=== PATIENT | female | born 1930 | race Caucasian/White ===

== ENCOUNTER 2017-02-18 21:14 | Inpatient (IN) | payer MEDICARE, BC ==
--- NOTE | ~2017-02-18 | CR72 ---
[facility] A Service of [facility] & [facility] RADIOLOGY TEXT RESULTS PATIENT: DANIEL LY LOCATION: [facility] 317-01 : 30 UNIT #: [id number] AGE: [address]: Valerie Haynes MD SEX: F ORDER DR: [id number] [facility] [address] [place], [place] [address] [id number] I MR#: [id number] Acc #: [id number] NAME: DANIEL LY. : 1930 SEX: F STUDY DATE/TIME: 02/18/2017 21:56 UNIT: CEDOF ROOM: 67582 STUDY DESCRIPTION: CR Chest Single View Portable Attending Physician: Valerie Haynes M.D. Ordering Physician: Nidia Giron M.D. Primary Care Physician: Landon Campa M.D. MEDICAL IMAGING REPORT This report is preliminary unless electronic signature is present EXAM AP portable chest radiograph. HISTORY Shortness of breath. Chest pain. History of pneumonia for 1 week. FINDINGS AP portable view is obtained. Heart size is normal. Patient has baseline severe emphysematous lung disease. The patient has developed superimposed infiltrates throughout both lungs. Postsurgical changes are seen in the left axilla. CONCLUSION Severe baseline emphysematous lung disease. Interim development of bilateral infiltrates in both lungs. Given the extent of the patient's chronic lung disease. This could represent superimposed heart failure, an infectious pneumonia, or given the time frame between the 2 films development of severe interstitial fibrosis. Dictated by... Brennen Arroyo M.D. THIS IS AN ELECTRONICALLY VERIFIED REPORT Brennen Arroyo M.D. at 02/19/2017 6:08 PM LEONILA/katie TD: 02/19/2017 07:57 JOB #: [id number] MEDICAL IMAGING REPORT Page 1 of 1 COPY
--- NOTE | ~2017-02-18 | CR63 ---
[facility] A Service of [facility] & [facility] RADIOLOGY TEXT RESULTS PATIENT: DANIEL LY LOCATION: [facility] 317- : 30 UNIT #: [id number] AGE: [address]: Valerie Haynes MD SEX: F ORDER DR: [id number] [facility] [address] [place], [place] [address] [id number] I MR#: [id number] Acc #: [id number] NAME: DANIEL LY : 1930 SEX: F STUDY DATE/TIME: 02/21/2017 13:16 UNIT: [address] ROOM: [facility] STUDY DESCRIPTION: CR Chest 2 View Attending Physician: Valerie Haynes M.D. Ordering Physician: Valerie Haynes M.D. Primary Care Physician: Landon Campa M.D. MEDICAL IMAGING REPORT This report is preliminary unless electronic signature is present EXAM PA and lateral radiographs of the chest, 02/22/2016 HISTORY Flue, cough, congestion. History of pneumonia and weakness. 10 days duration. FINDINGS PA and lateral radiographs of the chest are presented. Comparison 02/18/2017. No acute bony abnormality. Heart normal in size. Hyperinflation of the lungs suggesting underlying emphysema. This is stable. Ill-defined patchy densities seen in the bilateral lungs on prior examination are improved but not yet completely resolved. This likely reflects improving bilateral pneumonia. Improving pulmonary edema superimposed on emphysematous lung could be considered. No new areas of airspace disease are seen and there are no new areas of dense airspace disease. No suspicious nodules. Patient appears to be status post left mastectomy and axillary node dissection. There is a moderate hiatal hernia. Dictated by... Brennen Vasquez M.D. THIS IS AN ELECTRONICALLY VERIFIED REPORT Brennen Vasquez M.D. at 02/22/2017 11:31 AM Sam TD: 02/21/2017 22:52 JOB #: [id number] MEDICAL IMAGING REPORT [facility] A Service of [facility] & [facility] RADIOLOGY TEXT RESULTS PATIENT: DANIEL LY LOCATION: [facility] 317-01 : 30 UNIT #: [id number] AGE: [address]: Valerie Haynes MD SEX: F ORDER DR: Page 1 of 1 COPY
--- NOTE | ~2017-02-18 | EKG ---
PATIENT: DANIEL LY UNIT #: [id number] Ventricular Rate: 117 BPM Atrial Rate: 117 BPM P-R Interval: 134 ms QRS Duration: 80 ms Q-T Interval: 308 ms QTC Calculation(Bezet): 429 ms P Berthold: 68 degrees Calculated R Berthold: 70 degrees Calculated T Berthold: 56 degrees Diagnosis Line: Sinus tachycardia Diagnosis Line: Otherwise normal ECG Diagnosis Line: When compared with ECG of 12-MAY-2015 15:59, Diagnosis Line: Nonspecific T wave abnormality now evident in Diagnosis Line: Inferior leads Diagnosis Line: Confirmed by PILAR MARLEY MD ([id number]) on Diagnosis Line: 02/20/2017 1:19:22 PM INTERPRETING MD: TARA
--- NOTE | ~2017-02-18 | HP ---
Unit #: [id number] #: [id number] Patient: DANIEL LY [id number] [address] [place], [place] [address] [id number] I MR#: [id number] NAME: DANIEL LY. ROOM: 86449 Age: 86 Sex: F Admission Date: 02/19/2017 : 1930 Attending Physician: Valerie Haynes M.D. Primary Care Physician: Landon Campa M.D. HISTORY AND PHYSICAL CHIEF COMPLAINT Cough, chest pain with deep breath, shortness of breath, sore throat. DISCUSSION This is an 86-year-old female with a past medical history of breast cancer with previous left mastectomy, history of appendectomy, dyslipidemia, acid reflux. She represented to the emergency room with one week symptoms of sore throat, cough, congestion, chest pain, with deep breathe and on workup she was found to have bilateral infiltrate on chest x-ray and eventually admitted. She is telling me that her symptoms are similar, like previous she had a pneumonia. She says she has a creamy sputum but denies any other complaint. No diarrhea. No abdominal pain. No nausea. No vomiting. No headache. No dizziness. PAST MEDICAL HISTORY 1. History of laparoscopic appendectomy and subsequent exploratory laparotomy for possible small bowel obstruction in 2009. 2. History of breast cancer with previous left mastectomy. 3. Hyperlipidemia. 4. GERD. PAST SURGICAL HISTORY 1. Left mastectomy. 2. Appendectomy. 3. Exploratory laparotomy. 4. Left ankle surgery. SOCIAL HISTORY The patient lives alone. She does not smoke and does not drink alcohol. No other illicit drug use. ALLERGIES No known drug allergy. FAMILY HISTORY Noncontributory. MEDICATION FROM HOME 1. Prilosec 20 mg. 2. Lipitor. REVIEW OF SYSTEMS Negative except for history of present illness. Unit #: [id number] #: [id number] Patient: DANIEL LY PHYSICAL EXAMINATION GENERAL: Elderly female, lying in the bed comfortably, currently not in any distress. She is alert, awake, oriented x3, comfortable, not in any distress. VITAL SIGNS: His current vitals are following: Temperature 98.7, heart rate 117, respiratory rate 18, blood pressure 137/106. HEENT: Pupils are equal, react to light and accommodation. Head is normocephalic, atraumatic. NECK: Supple. No JVD. HEART: S1 and S2 regular rate and rhythm. LUNGS: Poor air entry but no rhonchi. No wheezing. ABDOMEN: Soft, nontender, nondistended. Bowel sounds positive. EXTREMITIES: To inspection normal. No cyanosis, no clubbing, no edema. NEUROLOGIC: No focal neurologic deficit. DIAGNOSTIC STUDIES LABORATORY WORKUP: BNP is 96, sodium 137, potassium 3.6, chloride 96, glucose 128, BUN 8, creatinine 0.5, LFT within normal limits. CBC - white count 16, hemoglobin 11, hematocrit 34, platelets 322. Negative influenza A and B. Troponin 0.0. IMAGING STUDIES: Chest x-ray - bilateral infiltrate. ASSESSMENT AND PLAN 1. Pneumonia: I started the patient on IV Levaquin, Mucinex, DuoNeb. 2. Dyslipidemia. 3. GERD. 4. DVT prophylaxis. Will place the patient on Lovenox. Dictated by Serena Galloway TD: 02/19/2017 07:20 JOB #: [id number] HISTORY AND PHYSICAL Page 1 of 1 X X HISTORY AND PHYSICAL
--- NOTE | ~2017-02-18 | DS ---
Unit #: [id number] #: [id number] Patient: DANIEL LY [id number] [address] [address] [id number] I MR#: [id number] NAME: DANIEL LY. ROOM: 317 Age: 86 Sex: F Admission Date: 02/18/2017 : 1930 Discharge Date: 02/22/2017 Attending Physician: Valerie Haynes M.D. Primary Care Physician: Landon Campa M.D. DISCHARGE SUMMARY DIAGNOSIS ON ADMISSION Pneumonia. DIAGNOSES ON DISCHARGE 1. Bilateral pneumonia, community acquired. 2. Dyslipidemia. 3. Gastroesophageal reflux disease. 4. History of breast cancer with left mastectomy. LABS AND PROCEDURES DONE 1. The patient's chest x-ray revealed bilateral patchy densities which were in both lungs which are improved but not yet completely resolved. This likely reflects improving bilateral pneumonia. 2. The patient's BNP was 96. 3. Influenza A and B screen was negative. 4. The patient's creatinine is 0.7, sodium 133, potassium 4.4. Calcium is 8.7. 5. WBC is 8.3, hemoglobin 10.7, platelet count 334. HOSPITAL COURSE This 86-year-old female was admitted to [facility] with chest pain. Details are as per admission H and P. Bilateral pneumonia: The patient was treated with IV antibiotics. She has responded well to treatment and is doing much better and wants to go home. She is afebrile. CONDITION Stable. ACTIVITY As tolerated. MEDICATIONS 1. Robitussin DM 5 mL q.4 hours p.r.n. over the counter. 2. Lipitor 5 mg twice a week on Mondays and Fridays. 3. Restasis eye drops. 4. Prilosec daily. 5. Levaquin 500 mg p.o. daily for five days. 6. Floranex one capsule p.o. b.i.d. for five days. FOLLOWUP The patient is advised to follow up with primary care physician in one week and have a CBC and BMP done. Unit #: [id number] #: [id number] Patient: DANIEL LY The patient is advised to call primary care physician or go to ER if her condition changes. The plan was discussed in detail with the patient who showed complete understanding. Dictated by... Serena Fung TD: 02/22/2017 13:12 JOB #: [id number] DISCHARGE SUMMARY Page 1 of 1 X Valerie Haynes MD X DISCHARGE SUMMARY
[~2017-02-18 21:14] MED LIST: CALTRATE-600/VI1 TA1 PO; CENTRUM SILVER PO; CRESTOR PO; CRESTOR5 MG PO; GLUCOSAMINE CHO1 TA1 PO; HYDROCHLOROTHIA25 MG PO; LEVAQUIN750 MG PO; PERCOCET 5-3251 TAB PO; PRILOSEC20 MG PO
[2017-02-18 22:25] LABS: POC - CKMB 2.7 ng/mL (0.0-7.9); POC - TROPONIN <0.05 ng/mL (<=0.05)
[2017-02-18 22:34] LABS: INFLUENZA A NEG (NEG); INFLUENZA B NEG (NEG)
[2017-02-18 22:41] LABS: BASOPHIL% 0.2 % (0-2.5); DIFF IND YES; EOSINOPHIL% 0.1 % (0.0-7.0); HEMATOCRIT 35.5 % (35.0-45.0); HEMOGLOBIN 11.9 gm/dL (12.0-16.0); LYMPHOCYTE# 0.7 X10e3 (1.0-3.5); LYMPHOCYTE% 4.5 % (17.0-45.0); MEAN CELL VOLUME 92.5 FL (83-96); MEAN CORPUSCULAR HEMOGLOBIN 30.9 PG (28-34); MEAN CORPUSCULAR HGB CONC 33.4 g/dL (30-36); MEAN PLATELET VOLUME 8.2 FL (6.5-11.5); MONOCYTE# 1.2 X10e3 (0-1.0); MONOCYTE% 7.4 % (3.0-12.0); NEUTROPHIL# 14.1 X10e3 (1.5-7.1); NEUTROPHIL% 87.8 % (40-75); PLATELET COUNT 322 X10e3 (140-420); RED BLOOD COUNT 3.84 X10e (3.90-5.30); RED CELL DISTRIBUTION WIDTH 12.9 % (11.0-15.5); WHITE BLOOD COUNT 16.1 X10e3 (4.0-10.5)
[2017-02-18 22:57] LABS: PLATELET ESTIMATE NORMAL (NORMAL)
[2017-02-18 23:15] LABS: ALBUMIN SERUM 3.4 g/dL (3.5-5.0); BILIRUBIN, DIRECT 0.1 mg/dL (0.0-0.2); BILIRUBIN,INDIRECT 0.9 mg/dL (0.0-0.9); CREATININE SERUM 0.5 mg/dL (0.6-1.4); GLOM FILT RATE Estimated 87.6 mL/min (>60); POTASSIUM 3.6 mmol/L (3.5-5.1); PROTEIN TOTAL SERUM 7.8 g/dL (6.0-8.3)
[2017-02-18] MEDS ORDERED: RESTASIS1 EACH OU (23:51)
[2017-02-18] MEDS ORDERED: LIPITOR PO (23:52)
[2017-02-18] MEDS ORDERED: PRILOSEC PO (23:53)
[2017-02-19 00:36] LABS: POC - CKMB 2.5 ng/mL (0.0-7.9); POC - TROPONIN <0.05 ng/mL (<=0.05)
[2017-02-19 08:50] LABS: BASOPHIL% 0.2 % (0-2.5); EOSINOPHIL% 0.3 % (0.0-7.0); HEMATOCRIT 36.8 % (35.0-45.0); HEMOGLOBIN 11.9 gm/dL (12.0-16.0); LYMPHOCYTE# 2.2 X10e3 (1.0-3.5); LYMPHOCYTE% 15.2 % (17.0-45.0); MEAN CELL VOLUME 94.1 FL (83-96); MEAN CORPUSCULAR HEMOGLOBIN 30.5 PG (28-34); MEAN CORPUSCULAR HGB CONC 32.4 g/dL (30-36); MEAN PLATELET VOLUME 8.5 FL (6.5-11.5); MONOCYTE# 1.3 X10e3 (0-1.0); NEUTROPHIL# 10.6 X10e3 (1.5-7.1); NEUTROPHIL% 75.3 % (40-75); PLATELET COUNT 271 X10e3 (140-420); RED BLOOD COUNT 3.91 X10e (3.90-5.30); RED CELL DISTRIBUTION WIDTH 13.2 % (11.0-15.5); WHITE BLOOD COUNT 14.1 X10e3 (4.0-10.5)
[2017-02-19 08:52] LABS: DIFF IND NO
[2017-02-19 09:23] LABS: CREATININE SERUM 0.5 mg/dL (0.6-1.4); GLOM FILT RATE Estimated 87.6 mL/min (>60); POTASSIUM 3.5 mmol/L (3.5-5.1)
[2017-02-20 06:35] LABS: HEMATOCRIT 32.4 % (35.0-45.0); HEMOGLOBIN 10.6 gm/dL (12.0-16.0); MEAN CELL VOLUME 92.6 FL (83-96); MEAN CORPUSCULAR HEMOGLOBIN 30.4 PG (28-34); MEAN CORPUSCULAR HGB CONC 32.9 g/dL (30-36); MEAN PLATELET VOLUME 7.8 FL (6.5-11.5); RED BLOOD COUNT 3.5 X10e (3.90-5.30); RED CELL DISTRIBUTION WIDTH 13.2 % (11.0-15.5); WHITE BLOOD COUNT 10.8 X10e3 (4.0-10.5)
[2017-02-20 07:08] LABS: BUN/CREATININE RATIO 15.71; CREATININE SERUM 0.7 mg/dL (0.6-1.4); GLOM FILT RATE Estimated 78.5 mL/min (>60); MAGNESIUM 2.1 mg/dL (1.6-3.0); POTASSIUM 3.8 mmol/L (3.5-5.1)
[2017-02-22 05:44] LABS: HEMATOCRIT 32.2 % (35.0-45.0); HEMOGLOBIN 10.7 gm/dL (12.0-16.0); MEAN CELL VOLUME 92.9 FL (83-96); MEAN CORPUSCULAR HEMOGLOBIN 30.9 PG (28-34); MEAN CORPUSCULAR HGB CONC 33.3 g/dL (30-36); MEAN PLATELET VOLUME 7.7 FL (6.5-11.5); RED BLOOD COUNT 3.46 X10e (3.90-5.30); RED CELL DISTRIBUTION WIDTH 13.1 % (11.0-15.5); WHITE BLOOD COUNT 8.3 X10e3 (4.0-10.5)
[2017-02-22 06:39] LABS: BUN/CREATININE RATIO 15.71; CALCIUM SERUM 8.7 mg/dL (8.4-10.2); CREATININE SERUM 0.7 mg/dL (0.6-1.4); GLOM FILT RATE Estimated 78.5 mL/min (>60); POTASSIUM 4.4 mmol/L (3.5-5.1)
[2017-02-22] MEDS ORDERED: ROBITUSSIN-COU237 ML PO (13:19)
[2017-02-22] MEDS ORDERED: LEVAQUIN750 MG PO (13:20)
[2017-02-22] MEDS ORDERED: FLORANEX GRANU1 EACH PO (13:32)
== END 2017-02-22 17:15 | disposition home health service (06) | DRG 195 ==
LOC: CED 21:14 → C3A PCU 23:58 → CEDOF 23:58 → CED 02-19 00:09 → CEDOF 02-19 00:09 → C3A PCU 02-19 15:34 → CEDOF 02-19 15:34 → C3A PCU 02-22 17:15
PROVIDERS: Emergency Medicine; Internal Medicine
DX: J18.9 Pneumonia, unspecified organism (principal); E78.5 Hyperlipidemia, unspecified; R09.02 Hypoxemia; K21.9 Gastro-esophageal reflux disease without esophagitis; Z87.01 Personal history of pneumonia (recurrent); Z85.3 Personal history of malignant neoplasm of breast; Z90.12 Acquired absence of left breast and nipple
CPT/HCPCS: 36415; 71010; 71020; 80048; 80076; 82553; 83735; 83880; 84484; 85025; 85027; 87804; 93005; 94640; 94760; 94761; 97161; 97165; 99285; G8978-GP; G8979-GP; G8980-GP; G8987-GO; G8988-GO; G8989-GO; J1650; J1956

== ENCOUNTER → 2017-03-01 | Outpatient (CLI) | payer MEDICARE, BC ==
[~2017-03-01] MED LIST changes: +FLORANEX GRANU1 EACH PO; +LIPITOR PO; +PRILOSEC PO; +RESTASIS1 EACH OU; +ROBITUSSIN-COU237 ML PO
--- NOTE | ~2017-03-01 | CR63 ---
[facility] A Service of [facility] & [facility] RADIOLOGY TEXT RESULTS PATIENT: DANIEL LY LOCATION: [facility] : 30 UNIT #: [id number] AGE: [address]: Landon Campa MD SEX: F ORDER DR: [id number] [facility] [address] [place], [place] [address] [id number] O MR#: [id number] Acc #: [id number] NAME: DANIEL LY : 1930 SEX: F STUDY DATE/TIME: 03/01/2017 15:24 UNIT: [facility] ROOM: STUDY DESCRIPTION: CR Chest 2 View Attending Physician: Landon Campa M.D. Referring Physician: Landon Campa M.D. Ordering Physician: Landon Campa M.D. Primary Care Physician: Landon Campa M.D. MEDICAL IMAGING REPORT This report is preliminary unless electronic signature is present EXAM PA and lateral chest, 03/01/2017 COMPARISON 02/21/2017 HISTORY Shortness of breath since the end of January. Followup of pneumonia. FINDINGS PA and lateral views are obtained. Heart size in the patient is normal. Pulmonary vascular markings are normal. Postop changes are seen in the left axilla. Lungs show evidence of interstitial fibrosis. This has returned to baseline. No new infiltrates are seen. There is atherosclerotic disease in the aorta. CONCLUSION COPD. No acute infiltrates identified. Postop changes left axilla. Dictated by... Brennen Arroyo M.D. THIS IS AN ELECTRONICALLY VERIFIED REPORT Brennen Arroyo M.D. at 03/04/2017 7:14 AM Alberto TD: 03/02/2017 11:25 JOB #: [id number] MEDICAL IMAGING REPORT Page 1 of 1 COPY
== END | disposition home or self-care (01) ==
LOC: CRAD 15:09
DX: J18.9 Pneumonia, unspecified organism (principal); J44.9 Chronic obstructive pulmonary disease, unspecified; Z98.890 Other specified postprocedural states
CPT/HCPCS: 71020